=== PATIENT | male | born 1985 | race Caucasian/White ===

== ENCOUNTER 2017-03-10 08:32 | Emergency (ER) | payer SELFPAY ==
[2017-03-10 09:19] VITALS: BP 138/88
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
[2017-03-10] MEDS ORDERED: Acetaminophen/HYDROcodone 325-5 MG Tab PO ONE (09:37)
--- NOTE | 2017-03-10 10:53 | CR ---
Left shoulder: Three views of the left shoulder were obtained. Comparison: No previous shoulder study. Distal clavicle is slightly elevated in relation to the acromion process felt compatible with mild acromioclavicular separation. Glenohumeral joint is unremarkable. No acute fracture or other bony abnormality is identified. Impression: 1. Mild acromioclavicular separation. Diagnostic code #3
== END 2017-03-10 10:40 | disposition home or self-care (01) ==
LOC: JD.ED 08:32
DX: S43.102A Unspecified dislocation of left acromioclavicular joint, initial encounter (principal); V89.2XXA Person injured in unspecified motor-vehicle accident, traffic, initial encounter
CPT/HCPCS: 73030; 99284; A9270; 99283